=== PATIENT | male | born 1940 | race Caucasian/White ===

== ENCOUNTER 2018-02-18 09:31 | Day surgery (SDC) | payer MEDICARE, OTHER ==
[2018-02-18 11:10] LABS: Performing Lab VERACYTE; Test Name FNA
== END 2018-02-18 22:59 | disposition home or self-care (01) ==
LOC: US 09:31
PROVIDERS: Otolaryngology
PROC: 0GBH3ZX Excision of Right Thyroid Gland Lobe, Percutaneous Approach, Diagnostic (ICD-10-PCS; principal; 2018-02-18)
DX: E04.1 Nontoxic single thyroid nodule (principal)
CPT/HCPCS: 10022; 76942

== ENCOUNTER 2021-12-05 12:37 | Day surgery (SDC) | payer MEDICARE, OTHER ==
[~2021-12-05] VITALS: Ht 180.3 cm; Wt 79.8 kg
[~2021-12-05 12:37] MED LIST: ALLERGY PILL; ASPI325EC PO; Aspir 8181 MG; CALCIUM; ROXICODONE5 MG PO; Vitamin D2000 UNIT PO
--- NOTE | 2021-12-05 13:22 | NUR ---
12/05/21 1322 Roopa Fischer 1 TRY RIGHT HAND NO FLASH
== END 2021-12-05 16:00 | disposition home or self-care (01) ==
LOC: ORSCSDS 12:37
PROVIDERS: Internal Medicine Gastroenterology
PROC: 0DBL8ZX Excision of Transverse Colon, Via Natural or Artificial Opening Endoscopic, Diagnostic (ICD-10-PCS; principal; 2021-12-05 15:00)
PROC: 0DBK8ZX Excision of Ascending Colon, Via Natural or Artificial Opening Endoscopic, Diagnostic (ICD-10-PCS; principal; 2021-12-05 15:00)
DX: K21.9 Gastro-esophageal reflux disease without esophagitis (principal); Z12.11 Encounter for screening for malignant neoplasm of colon; Z86.010 Personal history of colon polyps; D12.2 Benign neoplasm of ascending colon; D12.3 Benign neoplasm of transverse colon; Q39.6 Congenital diverticulum of esophagus; K64.8 Other hemorrhoids; Z79.899 Other long term (current) drug therapy; Z79.82 Long term (current) use of aspirin
CPT/HCPCS: 88305; J2405; J2704; J7120